=== PATIENT | female | born 1960 | race Two or more races ===

== ENCOUNTER → 2020-01-13 10:08 | Day surgery (SDC) | payer BC ==
[~2020-01-13 10:08] MED LIST: Benzocaine/Butamben/Tetracain (CETACAINE - SINGLE USE) 5 gm TOPICAL ONE; Buffered Lidocaine 1% SYRIN* 1 ML/SYRINGE INTRADERM ONE; Dexamethasone IV* 4 MG/ML 1 ML (4 MG) IV SLOW PU ONE; Dexamethasone IV* 4 MG/ML 1 ML (4 MG) ONE; EPHEDrine (Pressors)* 50 MG/ML VIAL ONE; Famotidine IV* 10 MG/ML 2 ML (20 mg) IV ONE; Famotidine IV* 10 MG/ML 2 ML (20 mg) ONE; Lactated Ringers 1000 ML Bag* 1,000 ML IV SCH; Lidocaine 1% INJ* 10 MG/ML 30 ML SDV ONE; Ondansetron INJ* 2 MG/ML VIAL ONE; Propofol* 10 MG/ML 20 ML BTL ONE; ROPIVACAINE 5 MG/ML 30 ML BTL (0.5%) ONE; Succinylcholine* 20 MG/ML 10 ML VIAL ONE; fentaNYL* 50 MCG/ML 2 ML VIAL (100 MCG VIAL) ONE
--- NOTE | 2020-01-13 13:06 | BRIEFOPN ---
Brief Operative/Procedure Note - Operation Details Pre-Op Diagnosis: Endobronchial narrowing lt lower lobe Post-Op Diagnosis: Narrow bronchus- lateral segment LLL Procedures: Bronchoscopy/EBBx/BAL Surgeon(s)/Proceduralists: Mere Anesthesia: GA- Dr Burnett Estimated Blood Loss: Negligable Findings: Endobronchial narrowing wiht mucosal irregularity of LLL bronchus lateral segment Specimen(s)/Culture(s) Description: EBBx for surgical bx, BAL for cytology Complications: None
[2020-01-13 13:29] VITALS: BP 98/65
--- NOTE | 2020-01-14 04:00 | PRO ---
BRONCHOSCOPY REPORT: DATE OF PROCEDURE: 01/13/20 PROCEDURE PERFORMED: Bronchoscopy, endobronchial biopsy and bronchoalveolar lavage from the left side. PREPROCEDURAL DIAGNOSIS: Possible endobronchial narrowing noted on CT chest. POSTPROCEDURAL DIAGNOSIS: Narrowing of the lateral segment of left lower lobe bronchus with some mucosal irregularity. No obvious endobronchial lesions noted. ANESTHESIA: General anesthesia. ANESTHESIOLOGIST: Dr. Burnett. DESCRIPTION OF PROCEDURE: Informed consent was obtained from the patient prior to the procedure after all the risks and benefits were thoroughly explained. Appropriate time-out was performed and agreed on by attending staff prior to the procedure. Flexible Olympus bronchoscope was inserted through ET tube for airway inspection. Thin secretions were noted in copious amounts on both sides and were suctioned out. No endobronchial lesions noted on the right side. Bronchoscope was then advanced to the left side. The patient noted to have narrowing of lateral segment with some mucosal irregularity on the left lower bronchus area. Secretions and mucus plugs were noted and were suctioned out. Bronchoalveolar lavage was obtained from that area. Bronchoscope was then placed there and endobronchial biopsies were obtained with 6 passes from the mucosal irregularity noted in the left lower lobe lateral segment. Specimen was placed in formalin. No significant bleeding was noted. Bronchoscope was withdrawn. The patient was extubated and seen in Recovery in optimal condition. [id number] #: [id number] [facility]ITALByron
== END | disposition home or self-care (01) ==
LOC: OR 10:08
PROVIDERS: ATTEND Internal Medicine
DX: J98.4 Other disorders of lung (principal); R91.8 Other nonspecific abnormal finding of lung field; F17.210 Nicotine dependence, cigarettes, uncomplicated; J43.9 Emphysema, unspecified; M19.90 Unspecified osteoarthritis, unspecified site; E78.00 Pure hypercholesterolemia, unspecified; M81.0 Age-related osteoporosis without current pathological fracture
CPT/HCPCS: 88112; 88305; J0330; J1100; J2405; J2704; J2795; J3010